=== PATIENT | male | born 1985 | race Hispanic/Latino ===

== ENCOUNTER 2018-10-29 18:01 | Observation (INO) | payer BC ==
[~2018-10-29] VITALS: Ht 175.3 cm; Wt 198.2 kg
[2018-10-29] MEDS ORDERED: SODIUM CHLORIDE 0.9% 1000ML 1,000 ML IV STA (18:27)
[2018-10-29] MEDS ORDERED: KETOROLAC TROMETHAMINE 30 MG/ML VIAL IV STA (18:27)
[2018-10-29] MEDS ORDERED: ASPIRIN 81 MG CHEW TAB PO ONE (18:30)
[2018-10-29 18:35] LABS: BASOPHILS % 0.3 % (0.0-1.0); HEMATOCRIT 46.6 % (38.2-49.6); HEMOGLOBIN 15.9 g/dL (14.0-18.0); LYMPHOCYTES # (AUTO) 0.8 (1.0-3.2); LYMPHOCYTES % 11.9 % (18.0-39.1); MEAN CORPUSCULAR HEMOGLOBIN 31.2 pg (28-32); MEAN CORPUSCULAR HGB CONC 34.1 g/dL (31-35); MEAN CORPUSCULAR VOLUME 91.4 fL (81-99); MONOCYTES # (AUTO) 0.1 (0.2-0.8); MONOCYTES % 1.5 % (4.4-11.3); NEUTROPHILS # (AUTO) 5.7 (2.1-6.9); NEUTROPHILS % 85.8 % (38.7-80.0); PLATELET COUNT 317 x10e3/uL (140-360); RED CELL DISTRIBUTION WIDTH 12.1 % (11.7-14.4)
[2018-10-29 18:45] LABS: INR 0.84; PROTHROMBIN TIME 12.3 seconds (11.9-14.5)
[2018-10-29 18:46] LABS: PARTIAL THROMBOPLASTIN TIME 26.5 seconds (23.8-35.5)
[2018-10-29 18:53] LABS: ALANINE AMINOTRANSFERASE 76 IU/L (0-55); ALBUMIN 4.7 g/dL (3.5-5.0); ALBUMIN/GLOBULIN RATIO 1.2 (0.8-2.0); ALKALINE PHOSPHATASE 57 IU/L (40-150); ANION GAP 16.1 mmol/L (8-16); BLOOD UREA NITROGEN 14 mg/dL (7-26); BUN/CREATININE RATIO 16 (6-25); CALCIUM 10.2 mg/dL (8.4-10.2); CARBON DIOXIDE 21 mmol/L (22-29); CHLORIDE 107 mmol/L (98-107); CREATINE KINASE 122 IU/L (30-200); CREATININE, SERUM 0.89 mg/dL (0.72-1.25); EST GLOMERULAR FILTRATION RATE > 60 ML/MIN (60-); GLUCOSE 142 mg/dL (74-118); LIPASE 14 U/L (8-78); POTASSIUM 4.1 mmol/L (3.5-5.1); SODIUM 140 mmol/L (136-145)
[2018-10-29 18:58] LABS: AMPHETAMINES SCREEN,URINE NEGATIVE (NEGATIVE); BENZODIAZEPINES SCREEN,URINE NEGATIVE (NEGATIVE); BILIRUBIN,URINE NEGATIVE (NEGATIVE); CLARITY,URINE CLEAR (CLEAR); COLOR,URINE YELLOW (YELLOW); KETONES,URINE NEGATIVE (NEGATIVE); LEUKOCYTE ESTERASE ,URINE NEGATIVE (NEGATIVE); NITRITE,URINE NEGATIVE (NEGATIVE); PHENCYCLIDINE SCREEN,URINE NEGATIVE (NEGATIVE); PROTEIN,URINE DIPSTICK NEGATIVE (NEGATIVE); URINE UROBILINOGEN 0.2 mg/dL (0.2 - 1)
[2018-10-29 19:04] LABS: BACTERIA,URINE RARE /HPF; EPITHELIAL CELLS,URINE RARE /LPF; RBC,URINE 0-5 /HPF (0-5); WBC,URINE (MAN) 0-5 /HPF (0-5)
[2018-10-29 19:12] LABS: THYROID STIMULATING HORMONE 1.316 uIU/mL (0.350-4.940)
--- NOTE | 2018-10-29 19:24 | Diagnostic Imaging Report ---
EXAMINATION: Chest PA and lateral views INDICATION: Pain. COMPARISON: None FINDINGS: Soft tissue attenuation. TUBES and LINES: None. LUNGS: Lungs are mildly hyperinflated. Mild bilateral perihilar peribronchial thickening. There is no evidence of pneumonia or pulmonary edema. PLEURA: No pleural effusion or pneumothorax. HEART AND MEDIASTINUM: The cardiomediastinal silhouette is unremarkable. BONES AND SOFT TISSUES: No acute osseous lesion. Soft tissues are unremarkable. UPPER ABDOMEN: No free air under the diaphragm. IMPRESSION: Mild bilateral perihilar peribronchial thickening. No focal consolidation. Signed by: Dr. Ginny Clinton M.D. on 10/29/2018 7:21 PM
[2018-10-29] MEDS ORDERED: ENOXAPARIN SODIUM INJ 100 MG/ML SYR SC NR (20:00)
[2018-10-29] MEDS ORDERED: NITROGLYCERIN 2% OINT 1 GM PKT TOP ONE (20:45)
[2018-10-29] MEDS ORDERED: SODIUM CHLORIDE FLUSH 10 ML SYR INJ PRN (20:45)
[2018-10-29] MEDS ORDERED: ONDANSETRON HCL INJ 2 MG/ML VIAL IV PRN (20:45)
[2018-10-29] MEDS ORDERED: ATORVASTATIN CA20 MG PO (20:53)
[2018-10-29] MEDS ORDERED: AUGMENTIN 875-1 EACH PO (20:53)
[2018-10-29] MEDS ORDERED: NAPROXEN250 MG PO (20:53)
--- OUTSIDE RECORDS SUMMARY | 2018-10-29 20:57 | XMS REPORT ---
Author [facility] Address Unknown Phone Unavailable Care Team Providers Care Apprentice/Lineman Name Role Phone ARSHMICHOACANO Gisella MARTINEZAME Unavailable Unavailable Problems This patient has no known problems. Allergies, Adverse Reactions, Alerts This patient has no known allergies or adverse reactions. Medications This patient has no known medications. Results Test Description Test Time Test Comments Text Results Atomic Results Result Comments CHEST SINGLE (PORTABLE) 2018-10-29 19:20:00 [place] [address] Patient Name: JINA TIM MR #: [id number] : 1985 Age/Sex: 33/M Req #: [id number] Adm Physician: Ordered by: JAMES GONZALES TUMBLING BARREL PAINTER Report #: [id number] Location: ER Room/Bed: Procedure: [id number] DX/CHEST SINGLE (PORTABLE) Exam Date: 10/29/18 Exam Time: 1855 REPORT STATUS: Signed EXAMINATION: Chest PA and lateral views IND ICATION: Pain. COMPARISON: None FINDINGS: Soft tissue attenuation. TUBES and LINES: None. LUNGS: Lungs are mildly hyperinflated. Mild bilateral perihilar peribronchial thickening. There is no evidence of pneumonia or pulmonary edema. PLEURA: No pleural effusion or pneumothorax. HEART AND MEDIASTINUM: The cardiomediastinal silhouette is unremarkable. BONES AND SOFT TISSUES: No acute osseous lesion. Soft tissues are unremarkable. UPPER ABDOMEN: No free air under the diaphragm. IMPRESSION: Mild bilateral perihilar peribronchial t hickening. No focal consolidation. Signed by: Dr. Ginny Arora M.D. on 10/29/2018 7:21 PM Dictated By: CARYN ARORA MD, MD 20 Transcribed By: ALF on 10/29/181920 COPY TO: JAMES GONZALES NP
--- OUTSIDE RECORDS SUMMARY | 2018-10-29 20:57 | XMS REPORT | Clinical Summary ---
Author Author [facility] Address Unknown Phone Unavailable Care Team Providers Care Windows Infrastructure Engineer Name Role Phone Asked, No Pcp PCP Unavailable Allergies No Known Allergies Medications Not on file Active Problems Not on file Encounters Care Team Description Date Type Specialty Spencer Emerson MD Chest pain, unspecified type (Primary Dx) 10/24/2018 Emergency Emergency Medicine - 10/25/2018 after 10/28/2017 Social History Date Tobacco Use Types Packs/Day Years Used Never Assessed Sex Assigned at Date Recorded Not on file Industry Job Start Date Occupation Not on file Not on file Not on file Travel End Travel History Travel Start No recent travel history available. Last Filed Vital Signs Time Taken Vital Sign Reading 10/25/2018 1:46 AM MARKETING OUTREACH COORDINATOR Blood Pressure 138/79 10/25/2018 1:46 AM MARKETING OUTREACH COORDINATOR Pulse 78 10/25/2018 1:46 AM MARKETING OUTREACH COORDINATOR Temperature 36.7 C (98 F) 10/25/2018 1:46 AM MARKETING OUTREACH COORDINATOR Respiratory Rate 17 10/25/2018 1:46 AM MARKETING OUTREACH COORDINATOR Oxygen Saturation 98% - Inhaled Oxygen - Concentration - Weight - 10/24/2018 8:24 PM MARKETING OUTREACH COORDINATOR Height 175.3 cm (5' 9") - Body Mass Index - Plan of Treatment Health Maintenance Due Date Last Done Comments INFLUENZA VACCINE 06/26/2018 HEPATITIS B VACCINES Aged Out No longer eligible based on patient's age to complete this topic IPV VACCINES Aged Out No longer eligible based on patient's age to complete this topic MENINGOCOCCAL VACCINE Aged Out No longer eligible based on patient's age to complete this topic Procedures Comments Procedure Name Priority Date/Time Associated Diagnosis TROPONIN STAT 10/25/2018 12:35 AM MARKETING OUTREACH COORDINATOR CT ANGIOGRAM PE CHEST STAT 10/25/2018 12:14 AM MARKETING OUTREACH COORDINATOR D-DIMER STAT 10/24/2018 10:24 PM MARKETING OUTREACH COORDINATOR XR CHEST 1 VW PORTABLE STAT 10/24/2018 9:21 PM MARKETING OUTREACH COORDINATOR ECG ED PRELIMINARY Routine 10/24/2018 INTERPRETATION 9:03 PM MARKETING OUTREACH COORDINATOR ESTIMATED GFR STAT 10/24/2018 8:33 PM MARKETING OUTREACH COORDINATOR CREATINE KINASE, TOTAL STAT 10/24/2018 (CPK) 8:33 PM MARKETING OUTREACH COORDINATOR TROPONIN STAT 10/24/2018 8:33 PM MARKETING OUTREACH COORDINATOR B NATRIURETIC PEPTIDE STAT 10/24/2018 8:33 PM MARKETING OUTREACH COORDINATOR COMPREHENSIVE METABOLIC STAT 10/24/2018 PANEL 8:33 PM MARKETING OUTREACH COORDINATOR PARTIAL THROMBOPLASTIN STAT 10/24/2018 TIME (PTT) 8:33 PM MARKETING OUTREACH COORDINATOR PROTHROMBIN TIME WITH INR STAT 10/24/2018 8:33 PM MARKETING OUTREACH COORDINATOR HC COMPLETE BLD COUNT STAT 10/24/2018 W/AUTO DIFF 8:33 PM MARKETING OUTREACH COORDINATOR ECG 12-LEAD Routine 10/24/2018 8:24 PM MARKETING OUTREACH COORDINATOR after 10/28/2017 Results * Troponin (10/25/2018 12:35 AM MARKETING OUTREACH COORDINATOR) Only the most recent of 2 results within the time period is included. Troponin <0.300 0.000 - 0.300 ng/mL [facility] Comment: [facility] 0.30 - 1.49 ng/mlMay indicate increased risk of acute coronary syndrome. >=1.5 ng/ml Consistent with acute myocardial infarction. The diagnostic value of a single normal or non-diagnostic result is questionable.Serial samples at 2-6 hour intervals are required to rule out acute myocardial injury. Specimen Plasma specimen Performing Organization Address City/State/Zipcode Phone [place] [address] [place] [address] PATHOLOGY AND GENOMIC MEDICINE [facility] [address] [address] [place] [address] [facility] * CT Angiogram Pe Chest (10/25/2018 12:14 AM MARKETING OUTREACH COORDINATOR) Narrative Performed At CT ANGIOGRAM PE CHEST [facility] CLINICAL INDICATION: PE suspectedintermediate probpositive D-dimer TECHNIQUE:CT angiographic images of the chest were obtained during intravenous administration of iodinated contrast.Computerized, reformatted images and 3-D MIP images were obtained and archived (per CT pulmonary embolism protocol). CT scans are performed using radiation dose reduction techniques (iterative reconstruction and/or automated exposure control). Technical factors are evaluated and adjusted to ensure appropriate moderation of exposure. Automated dose management technology is applied to adjust radiation exposure while achieving a diagnostic quality image. COMPARISON:None. FINDINGS: Pulmonary arteries: Diagnostic quality of study is limited due to suboptimal contrast timing and motion. In addition, there is a soft tissue attenuation. Within this limitation: . There is no evidence of acute or chronic pulmonary embolism. No evidence of right heart strain. The main pulmonary artery is dilated, measuring 3.4 cm. Aorta:No aneurysm. Lungs and large airways:Clear. Pleura:No pleural effusion, pleural thickening, or pneumothorax. Heart and pericardium:Heart size is normal. No pericardial effusion. Mediastinum and efe:No mass or hematoma. Lymph nodes:No pathological adenopathy in the efe, axilla or mediastinum. Chest wall:Unremarkable. Bones:Normal. Upper abdomen:No focal abnormality detected with limited evaluation. IMPRESSION: 1. No convincing evidence of acute pulmonary embolism although the examination is limited. Pulmonary artery is dilated, possibly indicating pulmonary arterial hypertension in the appropriate clinical setting. 2. Lungs without focal or confluent airspace consolidation. [facility]-[id number] Procedure Note Interface, Radiology Results Incoming - 10/25/2018 12:21 AM MARKETING OUTREACH COORDINATOR CT ANGIOGRAM PE CHEST CLINICAL INDICATION: PE suspected intermediate prob positive D-dimer TECHNIQUE: CT angiographic images of the chest were obtained during intravenous administration of iodinated contrast. Computerized, reformatted images and 3-D MIP images were obtained and archived (per CT pulmonary embolism protocol). CT scans are performed using radiation dose reduction techniques (iterative reconstruction and/or automated exposure control). Technical factors are evaluated and adjusted to ensure appropriate moderation of exposure. Automated dose management technology is applied to adjust radiation exposure while achieving a diagnostic quality image. COMPARISON: None. FINDINGS: Pulmonary arteries: Diagnostic quality of study is limited due to suboptimal contrast timing and motion. In addition, there is a soft tissue attenuation. Within this limitation: . There is no evidence of acute or chronic pulmonary embolism. No evidence of right heart strain. The main pulmonary artery is dilated, measuring 3.4 cm. Aorta: No aneurysm. Lungs and large airways: Clear. Pleura: No pleural effusion, pleural thickening, or pneumothorax. Heart and pericardium: Heart size is normal. No pericardial effusion. Mediastinum and efe: No mass or hematoma. Lymph nodes: No pathological adenopathy in the efe, axilla or mediastinum. Chest wall: Unremarkable. Bones: Normal. Upper abdomen: No focal abnormality detected with limited evaluation. IMPRESSION: 1. No convincing evidence of acute pulmonary embolism although the examination is limited. Pulmonary artery is dilated, possibly indicating pulmonary arterial hypertension in the appropriate clinical setting. 2. Lungs without focal or confluent airspace consolidation. [id number] Performing Organization Address [facility]/Zipcode Phone Number [facility] [address] [place] [address] * D-dimer (10/24/2018 10:24 PM MARKETING OUTREACH COORDINATOR) D-dimer 0.47 (H) 0.00 - 0.40 ug/mL FEU [facility] Comment: [facility] Units are ug/ml Fibrinogen Equivalent Unit. When combined with low clinical probability, D-dimer results of less than 0.5 ug/ml FEU have a good negativepredictive value in excluding PE or DVT. For D-dimer results greater than 0.5ug/ml FEU further testing is indicated if PE or DVT is suspectedclinically. Elevated D-dimer results have been reported in DVT, PE, and DIC cases and may indicate the presence of a clot. D-dimer results may be elevated due to old age, , inflammatory diseases, trauma, post-operative states, sepsis, and malignancies. Specimen Blood Performing Organization Address [facility]/Zipcode [place] [address] [place] [address] PATHOLOGY AND GENOMIC MEDICINE [facility] [address] [place] [id number] [facility] * XR Chest 1 Vw Portable (10/24/2018 9:21 PM MARKETING OUTREACH COORDINATOR) Narrative Performed At EXAMINATION: XR CHEST 1 VW PORTABLE [facility] CLINICAL HISTORY: chest pain COMPARISON:None. IMPRESSION: The lungs are clear. No pleural effusion or pneumothorax. The cardiomediastinal silhouette is normal. No acute osseous abnormalities. [facility]-[id number] Procedure Note Hm Interface, Radiology Results Incoming - 10/24/2018 9:33 PM MARKETING OUTREACH COORDINATOR EXAMINATION: XR CHEST 1 VW PORTABLE CLINICAL HISTORY: chest pain COMPARISON: None. IMPRESSION: The lungs are clear. No pleural effusion or pneumothorax. The cardiomediastinal silhouette is normal. No acute osseous abnormalities. [facility]-[id number] Performing Organization Address [facility]/Zipcode Phone Number [facility] [address] [place] [address] * ECG ED Preliminary Interpretation - Not an Order (10/24/2018 9:03 PM MARKETING OUTREACH COORDINATOR) Narrative Performed At Spencer Emerson MD 10/25/20181:03 AM ECG ED Preliminary Interpretation - Not an Order Performed by: Spencer Emerson MD Authorized by: Spencer Emerson MD ECG reviewed by ED Physician in the absence of a r&d engineer: yes (read at 2040) Interpretation: Interpretation: normal Rate: ECG rate:96 ECG rate assessment: normal Rhythm: Rhythm: sinus rhythm Ectopy: Ectopy: none QRS: QRS axis:Normal Conduction: Conduction: normal ST segments: ST segments:Non-specific T waves: T waves: normal * Estimated GFR (10/24/2018 8:33 PM MARKETING OUTREACH COORDINATOR) Estimated GFR >=90 mL/min/1.73 m2 [facility] Comment: [facility] CatergoryUnitsInte rpretation G1 >=90 Normal or high G2 60-89Mildly decreased [id number] Mildly to moderately decreased B7w90-86 Moderately to severely decreased G4 15-29Severely decreased G5 <15Kidney failure The eGFR was calculated using the Chronic Kidney Disease Epidemiology Collaboration (CKD-EPI) equation. Interpretation is based on recommendations of the National Kidney Foundation-Kidney Disease Outcomes Quality Initiative (NKF-KDOQI) published in 2014. Specimen Plasma specimen Performing Organization Address [facility]/Zipcode Phone Number [facility] [address] [place] [address] PATHOLOGY AND GENOMIC MEDICINE [facility] [address] [place] [address] [facility] * Partial thromboplastin time, activated (10/24/2018 8:33 PM MARKETING OUTREACH COORDINATOR) PTT 28.2 23.0 - 36.0 sec [facility] Comment: [facility] PTT therapeutic range for unfractionated heparin is 61.0-112.0 seconds which corresponds to Anti-Xa 0.3-0.7 U/ml. Specimen Blood Performing Organization Address City/[facility] Phone Number [address] [place] [address] PATHOLOGY AND GENOMIC MEDICINE [address] * Prothrombin time with INR (10/24/2018 8:33 PM MARKETING OUTREACH COORDINATOR) Prothrombin time 12.6 11.5 - 14.5 sec [facility] INR 1.0 [facility] Comment: [facility] The International Normalized Ratio (INR) is a therapeutic monitoring tool for patients who are stable on oral anticoagulant therapy. An INR of 2.0-3.0 is suggested for deep vein thrombosis/pulmonary embolism. Specimen Blood Performing Organization Address [facility] Phone Number [address] [place] [address] PATHOLOGY AND GENOMIC MEDICINE [address] * CBC with platelet and differential (10/24/2018 8:33 PM MARKETING OUTREACH COORDINATOR) WBC 6.40 4.50 - 11.00 k/uL [facility] RBC 4.60 4.40 - 6.00 m/uL [facility] HGB 14.4 14.0 - 18.0 g/dL [facility] HCT 43.9 41.0 - 51.0 % [facility] MCV 95.4 82.0 - 100.0 fL [facility] MCH 31.3 27.0 - 34.0 pg [facility] MCHC 32.8 31.0 - 37.0 g/dL [facility] RDW - SD 44.2 37.0 - 55.0 fL [facility] MPV 9.5 8.8 - 13.2 fL [facility] Platelet count 264 150 - 400 k/uL [facility] Nucleated RBC 0.00 /100 WBC [facility] Neutrophils 46.7 39.0 - 69.0 % [facility] Lymphocytes 33.9 25.0 - 45.0 % [facility] Monocytes 15.3 (H) 0.0 - 10.0 % [facility] Eosinophils 3.1 0.0 - 5.0 % [facility] Basophils 0.8 0.0 - 1.0 % [facility] Specimen Blood Performing Organization Address [facility] Phone Number [address] [place] [address] PATHOLOGY AND GENOMIC MEDICINE [address] * B natriuretic peptide (10/24/2018 8:33 PM MARKETING OUTREACH COORDINATOR) BNP 3 0 - 100 pg/mL [facility] Specimen Blood Performing Organization Address [facility] [place] [place] Phone Number [address] [place] [address] PATHOLOGY AND GENOMIC MEDICINE [address] * Creatine kinase, total (CPK) (10/24/2018 8:33 PM MARKETING OUTREACH COORDINATOR) Creatine kinase 113 39 - 308 U/L [facility] Specimen Plasma specimen Performing Organization Address [facility] [place] [place] Phone Number [address] [place] [address] PATHOLOGY AND GENOMIC MEDICINE [address] * Comprehensive metabolic panel (10/24/2018 8:33 PM MARKETING OUTREACH COORDINATOR) Sodium 141 135 - 148 mEq/L [facility] Potassium 3.8 3.5 - 5.0 mEq/L [facility] Chloride 104 98 - 112 mEq/L [facility] CO2 24 24 - 31 mEq/L [facility] Anion gap 13@ANIO 7 - 15 mEq/L [facility] BUN 15 6 - 20 mg/dL [facility] Creatinine 1.00 0.70 - 1.20 mg/dL [facility] Glucose 144 (H) 65 - 99 mg/dL [facility] Calcium 9.3 8.3 - 10.2 mg/dL [facility] Protein 7.4 6.3 - 8.3 g/dL [facility] Comment: [facility] 4.6-7.0 g/dL 1 week 4.4-7.6 g/dL 7 months-1year 5.1-7.3 g/dL 1-2 years5.6-7 .5 g/dL >3 years6.0-8 .0 g/dL 18-150 6.3-8.3 g/dL Albumin 4.3 3.5 - 5.0 g/dL [facility] A/G ratio 1.4 0.7 - 3.8 [facility] Alkaline phosphatase 60 40 - 129 U/L [facility] AST 27 10 - 50 U/L [facility] ALT 40 5 - 50 U/L [facility] Total bilirubin 0.6 0.0 - 1.2 mg/dL [facility] Specimen Plasma specimen Performing Organization Address City/State/Zipcode Phone Number [facility] [place] [id number] [place] [address] [place] [address] PATHOLOGY AND GENOMIC MEDICINE [facility] [id number] [place] [address] [place] [id number] [facility] * ECG 12 lead (10/24/2018 8:24 PM MARKETING OUTREACH COORDINATOR) Ventricular rate 96 [facility] Atrial rate 96 [facility] IA interval 130 [facility] QRSD interval 112 [facility] QT interval 350 [facility] QTC interval 442 [facility] P axis 1 30 [facility] QRS axis 1 -51 [facility] T wave axis 11 [facility] EKG impression Normal sinus rhythm-Left [facility] anterior fascicular block-Abnormal ECG-No previous ECGs available- Narrative Performed At Performing Organization Address City/[facility]/Zipcode Phone Number [facility] [address] [place] [address] after 10/28/2017 Insurance Payer Benefit Subscriber ID Type Phone Address Plan / Group BCBS BC xxxxxxxxxxxx PPO CHOICE PPO/DIANE MATT PPO Advance Directives Patient has advance care planning documents on file. For more information, cinthya e contact: Vlad Mcgraw [address] [place] [address]
[2018-10-29] MEDS: ACETAMINOPHEN 325 MG TAB PO PRN (23:50)
[2018-10-30] VITALS (7 sets, daily range): BP systolic 112–141; BP diastolic 64–89
[2018-10-30] MEDS ORDERED: NITROGLYCERIN 2% OINT 1 GM PKT TOP SCH
[2018-10-30] MEDS: NITROGLYCERIN 2% OINT 1 GM PKT TOP SCH ×2 (05:23→10:00)
[2018-10-30 05:51] LABS: CREATINE KINASE 83 IU/L (30-200)
[2018-10-30 06:57] LABS: CHOL/HDL RATIO 3.4 (3.9-4.7)
[2018-10-30] MEDS ORDERED: ASPIRIN 81 MG ENTERIC COATED PO SCH (09:00)
[2018-10-30] MEDS: ACETAMINOPHEN 325 MG TAB PO PRN (10:04)
--- NOTE | 2018-10-30 11:46 | History and Physical ---
HISTORY OF PRESENT ILLNESS: The patient is a 33-year-old male with no past medical history, who came to the hospital complaining of sharp chest pain with burning sensation in the chest. REVIEW OF SYSTEMS CARDIOVASCULAR: He had a burning sensation in chest and the chest pain was described as sharp pain with no radiation. RESPIRATORY: No shortness of breath. No coughing. GASTROINTESTINAL: No nausea. No vomiting, no diarrhea. GENITOURINARY: No frequency, no dysuria. ALLERGIES: NOT ALLERGIC TO ANYTHING. SOCIAL HISTORY: He does not smoke, does not drink. PAST MEDICAL HISTORY: Patient denies any significant past medical history. He was recently at [facility] and cardiology were going to do a stress test tomorrow. PHYSICAL EXAMINATION HEART: Shows regular rhythm. Normal S1 and S2 sounds. LUNGS: Clear bilaterally. ABDOMEN: Soft. EXTREMITIES: Show no evidence of cyanosis, edema or trauma. IMAGING DATA: EKG showed normal sinus rhythm. No evidence of any ST segment depression or elevation. He has T-wave inversion in lead III, flat T-waves in AVF. Cardiac enzymes are negative. The patient was seen by Dr. Magdaleno, cardiology, who said that he does not think he can do from the cardiology point of view. Patient is extremely obese. So he recommended to do the workup as an outpatient for atypical chest pain. He does have some heartburn also. FINAL IMPRESSION: Atypical chest pain with a borderline EKG and extreme obesity. PLAN OF TREATMENT: The patient will continue aspirin 81 mg daily. I am going to prescribe Protonix 40 mg daily because of heartburn. He is going to go for an appointment with his surface grinder tender tomorrow for workup on the chest pain. with Dr. Jony Magdaleno cardiology, who recommended to outpatient workup because of the chest pain that is atypical. Job#: [id number] SUB
[2018-10-30] MEDS ORDERED: PANTOPRAZOLE SO40 MG PO (12:30)
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
--- NOTE | 2018-10-30 13:07 | Discharge Summary ---
HISTORY OF PRESENT ILLNESS: Patient is a 33-year-old male who came here with chest pain. Dr. Magdaleno, associate account manager, saw the patient. His impression was atypical chest pain and that the workup can be done as an outpatient. The patient was already seen at [facility] by one of the associate account manager and apparently he is scheduled to see the associate account manager tomorrow for cardiac workup. PHYSICAL EXAM HEART: Shows regular rhythm. Normal S1, S2 sounds. LUNGS: Clear bilaterally. ABDOMEN: Soft. EXTREMITIES: Showed no evidence of cyanosis, edema, or trauma. On the BMP, sodium 140, potassium 4.1, chloride 107, CO2 21, BUN 14, creatinine 0.89, glucose 142. On the CBC, white blood count 6.65, hemoglobin 15.9, hematocrit 46.6, platelet count 317,000. PT 12.3, INR 0.84, PTT 26.5. AST 37, ALT 76, total bilirubin 1.2, alkaline phosphatase 57. Chest x-ray was negative. EKG was pretty much unremarkable with no evidence of any ST-segment elevation or depression, just T-wave inversions in lead III. As I said, I discussed the case with Dr. Jony Magdaleno, associate account manager, who recommended patient to be discharged home today with Protonix and aspirin and follow up with the associate account manager as an outpatient tomorrow which he is supposed to do the cardiac workup. Patient is chest pain free right now. CASA CORNELL MD Job#: [id number] KERWIN
== END 2018-10-30 12:53 | disposition home or self-care (01) ==
LOC: ER 18:01 → INTOOBSV 20:54 → ERHOLD 20:54
PROVIDERS: ADMIT Internal Medicine; ATTEND Internal Medicine
DX: R07.89 Other chest pain (principal); E66.01 Morbid (severe) obesity due to excess calories; G47.33 Obstructive sleep apnea (adult) (pediatric); E78.00 Pure hypercholesterolemia, unspecified; K21.9 Gastro-esophageal reflux disease without esophagitis; M47.895 Other spondylosis, thoracolumbar region; Z68.44 Body mass index [BMI] 60.0-69.9, adult
CPT/HCPCS: 36415 ×2; 71045; 80053; 80061; 80307; 81001; 82550 ×2; 82553 ×2; 83690; 84443; 84484 ×2; 85025; 85379; 85610; 85730; 87086; 93005 ×2; 99284; G0378 ×2; J1650; J1885; J2405; J7030

== ENCOUNTER → 2018-12-19 | Day surgery (SDC) | payer BC ==
[~2018-12-19] MED LIST: ATORVASTATIN CA20 MG PO; AUGMENTIN 875-1 EACH PO; FENTANYL CITRATE/PF 100MCG/2 ML INJ ONE; MIDAZOLAM HCL 2 MG/2 ML VIAL ONE; NAPROXEN250 MG PO; OMEPRAZOLE40 MG PO; PANTOPRAZOLE SO40 MG PO; PROPOFOL IV EMULSION 10 MG/ML 50 ML VIAL ONE
--- OUTSIDE RECORDS SUMMARY | 2018-12-19 07:15 | XMS REPORT | Clinical Summary ---
Author Author [facility] [facility] [employer] Address Unknown Phone Unavailable Care Team Providers Care Circular Sawyer Stone Name Role Phone Asked, No Pcp PCP Unavailable Allergies No Known Allergies Medications Not on file Active Problems Not on file Encounters Care Team Description Date Type Specialty Spencer Emerson MD Chest pain, unspecified type (Primary Dx) 10/24/2018 Emergency Emergency Medicine - 10/25/2018 after 12/18/2017 Social History Date Tobacco Use Types Packs/Day Years Used Never Assessed Sex Assigned at Date Recorded Not on file Industry Job Start Date Occupation Not on file Not on file Not on file Travel End Travel History Travel Start No recent travel history available. Last Filed Vital Signs Time Taken Vital Sign Reading 10/25/2018 1:46 AM OPERATIONS RESEARCH ANALYST Blood Pressure 138/79 10/25/2018 1:46 AM OPERATIONS RESEARCH ANALYST Pulse 78 10/25/2018 1:46 AM OPERATIONS RESEARCH ANALYST Temperature 36.7 C (98 F) 10/25/2018 1:46 AM OPERATIONS RESEARCH ANALYST Respiratory Rate 17 10/25/2018 1:46 AM OPERATIONS RESEARCH ANALYST Oxygen Saturation 98% - Inhaled Oxygen - Concentration - Weight - 10/24/2018 8:24 PM OPERATIONS RESEARCH ANALYST Height 175.3 cm (5' 9") - Body Mass Index - Plan of Treatment Health Maintenance Due Date Last Done Comments INFLUENZA VACCINE 06/26/2018 Procedures Comments Procedure Name Priority Date/Time Associated Diagnosis TROPONIN STAT 10/25/2018 12:[address] [address] [address] ANGIOGRAM PE CHEST STAT 10/25/2018 12:14 AM OPERATIONS RESEARCH ANALYST D-DIMER STAT 10/24/2018 10:24 PM OPERATIONS RESEARCH ANALYST XR CHEST 1 VW PORTABLE STAT 10/24/2018 9:21 PM OPERATIONS RESEARCH ANALYST ECG ED PRELIMINARY Routine 10/24/2018 INTERPRETATION 9:03 PM OPERATIONS RESEARCH ANALYST ESTIMATED GFR STAT 10/24/2018 8:33 PM OPERATIONS RESEARCH ANALYST CREATINE KINASE, TOTAL STAT 10/24/2018 (CPK) 8:33 PM OPERATIONS RESEARCH ANALYST TROPONIN STAT 10/24/2018 8:33 PM OPERATIONS RESEARCH ANALYST B NATRIURETIC PEPTIDE STAT 10/24/2018 8:33 PM OPERATIONS RESEARCH ANALYST COMPREHENSIVE METABOLIC STAT 10/24/2018 PANEL 8:33 PM OPERATIONS RESEARCH ANALYST PARTIAL THROMBOPLASTIN STAT 10/24/2018 TIME (PTT) 8:33 PM OPERATIONS RESEARCH ANALYST PROTHROMBIN TIME WITH INR STAT 10/24/2018 8:33 PM OPERATIONS RESEARCH ANALYST HC COMPLETE BLD COUNT STAT 10/24/2018 W/AUTO DIFF 8:33 PM OPERATIONS RESEARCH ANALYST ECG 12-LEAD Routine 10/24/2018 8:24 PM OPERATIONS RESEARCH ANALYST after 12/18/2017 Results * Troponin (10/25/2018 12:35 AM OPERATIONS RESEARCH ANALYST) Only the most recent of 2 results within the time period is included. Troponin <0.300 0.000 - 0.300 ng/mL [facility] Comment: [facility] 0.30 - 1.49 ng/mlMay indicate increased risk of acute coronary syndrome. >=1.5 ng/ml Consistent with acute myocardial infarction. The diagnostic value of a single normal or non-diagnostic result is questionable.Serial samples at 2-6 hour intervals are required to rule out acute myocardial injury. Specimen Plasma specimen Performing Organization Address City/State/Zipcode Phone [place] [address] [place] [address] PATHOLOGY AND GENOMIC MEDICINE [facility] [address] [place] [address] [facility] * CT Angiogram Pe Chest (10/25/2018 12:14 AM OPERATIONS RESEARCH ANALYST) Narrative Performed At CT ANGIOGRAM PE CHEST [...] Lungs without focal or confluent airspace consolidation. [id number] Procedure Note [facility], Radiology Results Incoming - 10/25/2018 12:[address]ATIONS RESEARCH ANALYST [address] ANGIOGRAM PE CHEST CLINICAL INDICATION: PE [...] Lungs without focal or confluent airspace consolidation. [facility]-[id number] Performing Organization Address [facility] Phone Number [facility] [address] [place] [address] * D-dimer (10/24/2018 10:24 PM OPERATIONS RESEARCH ANALYST) D-dimer 0.47 (H) 0.00 - 0.40 ug/mL FEU [facility] Comment: [facility] Units are ug/ml Fibrinogen Equivalent Unit. When [...] and malignancies. Specimen Blood Performing Organization Address [facility] Phone Number [facility] DEPARTMENT [address] [place] [address] PATHOLOGY AND GENOMIC MEDICINE [facility] [address] [place] [address] * XR Chest 1 Vw Portable (10/24/2018 9:21 PM OPERATIONS RESEARCH ANALYST) Narrative Performed At EXAMINATION: XR CHEST 1 VW PORTABLE [facility] CLINICAL HISTORY: chest pain COMPARISON:None. IMPRESSION: The lungs are clear. No pleural effusion or pneumothorax. The cardiomediastinal silhouette is normal. No acute osseous abnormalities. [facility]-[id number] Procedure Note [facility] Interface, Radiology Results Incoming - 10/24/2018 9:33 PM OPERATIONS RESEARCH ANALYST EXAMINATION: XR CHEST 1 VW PORTABLE CLINICAL HISTORY: chest pain COMPARISON: None. IMPRESSION: The lungs are clear. No pleural effusion or pneumothorax. The cardiomediastinal silhouette is normal. No acute osseous abnormalities. [facility]-[id number] Performing Organization Address [facility] Phone Number [facility] [address] [place] [address] * ECG ED Preliminary Interpretation - Not an Order (10/24/2018 9:03 PM OPERATIONS RESEARCH ANALYST) Narrative Performed At Spencer Emerson MD 10/25/20181:03 AM ECG ED Preliminary Interpretation - Not an Order Performed by: Spencer Emerson MD Authorized by: Spencer Emerson MD ECG reviewed by ED Physician in the absence of a senior accounts payable specialist: yes (read at 2040) Interpretation: Interpretation: normal Rate: ECG rate:96 ECG rate assessment: normal Rhythm: Rhythm: sinus rhythm Ectopy: Ectopy: none QRS: QRS axis:Normal Conduction: Conduction: normal ST segments: ST segments:Non-specific T waves: T waves: normal * Estimated GFR (10/24/2018 8:33 PM OPERATIONS RESEARCH ANALYST) Estimated GFR >=90 mL/min/1.73 m2 [facility] Comment: [facility] CatergoryUnitsInte rpretation G1 >=90 Normal or high G2 60-89Mildly decreased [id number] Mildly to moderately decreased [id number] Moderately to severely decreased G4 15-29Severely decreased G5 <15Kidney failure The eGFR was calculated using the Chronic Kidney Disease Epidemiology Collaboration (CKD-EPI) equation. Interpretation is based on recommendations of the National Kidney Foundation-Kidney Disease Outcomes Quality Initiative (NKF-KDOQI) published in 2014. Specimen Plasma specimen Performing Organization Address [facility] Phone [place] [address] [place] [address] PATHOLOGY AND GENOMIC MEDICINE [facility] [address] [address] [place] [address] [facility] * Partial thromboplastin time, activated (10/24/2018 8:33 PM OPERATIONS RESEARCH ANALYST) PTT 28.2 23.0 - 36.0 sec [facility] Comment: [facility] PTT therapeutic range for unfractionated heparin is 61.0-112.0 seconds which corresponds to Anti-Xa 0.3-0.7 U/ml. Specimen Blood Performing Organization Address [facility]/Zipcode Phone Number [address] [place] [address] PATHOLOGY AND GENOMIC MEDICINE [address] * Prothrombin time with INR (10/24/2018 8:33 PM OPERATIONS RESEARCH ANALYST) Prothrombin time 12.6 11.5 - 14.5 sec [facility] INR 1.0 [facility] Comment: [facility] The International Normalized Ratio (INR) is a therapeutic monitoring tool for patients who are stable on oral anticoagulant therapy. An INR of 2.0-3.0 is suggested for deep vein thrombosis/pulmonary embolism. Specimen Blood Performing Organization Address [facility] Phone Number [address] [place] [address] PATHOLOGY AND GENOMIC MEDICINE [address] * CBC with platelet and differential (10/24/2018 8:33 PM OPERATIONS RESEARCH ANALYST) WBC 6.40 4.50 - 11.00 k/uL [facility] RBC 4.60 4.40 - 6.00 m/uL [facility] HGB 14.4 14.0 - 18.0 g/dL [facility] HCT 43.9 41.0 - 51.0 % [facility] MCV 95.4 82.0 - 100.0 fL [facility] MCH 31.3 27.0 - 34.0 pg [facility] MCHC 32.8 31.0 - 37.0 g/dL [facility] RDW - SD 44.2 37.0 - 55.0 fL [facility] MPV 9.5 8.8 - 13.2 fL [facility] Platelet count 264 150 - 400 k/uL [facility] Nucleated RBC 0.00 /100 WBC [facility] Neutrophils 46.7 39.0 - 69.0 % [facility] Lymphocytes 33.9 25.0 - 45.0 % [facility] Monocytes 15.3 (H) 0.0 - 10.0 % [facility] Eosinophils 3.1 0.0 - 5.0 % [facility] Basophils 0.8 0.0 - 1.0 % [facility] Specimen Blood Performing Organization Address City/[facility] Phone Number [facility] DEPARTMENT [address] [place] [address] PATHOLOGY AND GENOMIC MEDICINE [address] * B natriuretic peptide (10/24/2018 8:33 PM OPERATIONS RESEARCH ANALYST) BNP 3 0 - 100 pg/mL [facility] Specimen Blood Performing Organization Address City/[facility] Phone Number [address] [place] [address] PATHOLOGY AND GENOMIC MEDICINE [address] * Creatine kinase, total (CPK) (10/24/2018 8:33 PM OPERATIONS RESEARCH ANALYST) Creatine kinase 113 39 - 308 U/L [facility] Specimen Plasma specimen Performing Organization Address [facility] Phone Number [address] [place] [address] PATHOLOGY AND GENOMIC MEDICINE [address] * Comprehensive metabolic panel (10/24/2018 8:33 PM OPERATIONS RESEARCH ANALYST) Sodium 141 135 - 148 mEq/L [facility] Potassium 3.8 3.5 - 5.0 mEq/L [facility] Chloride 104 98 - 112 mEq/L [facility] CO2 24 24 - 31 mEq/L [facility] Anion gap 13@ANIO 7 - 15 mEq/L [facility] BUN 15 6 - 20 mg/dL [facility] Creatinine 1.00 0.70 - 1.20 mg/dL [facility] Glucose 144 (H) 65 - 99 mg/dL [facility] Calcium 9.3 8.3 - 10.2 mg/dL [facility] Protein 7.4 6.3 - 8.3 g/dL [facility] Comment: [facility] [place] 4.6-7.0 g/dL 1 week 4.4-7.6 g/dL 7 months-1year 5.1-7.3 g/dL 1-2 years5.6-7 .5 g/dL >3 years6.0-8 .0 g/dL 18-150 6.3-8.3 g/dL Albumin 4.3 3.5 - 5.0 g/dL [facility] A/G ratio 1.4 0.7 - 3.8 [facility] Alkaline phosphatase 60 40 - 129 U/L [facility] AST 27 10 - 50 U/L [facility] ALT 40 5 - 50 U/L [facility] Total bilirubin 0.6 0.0 - 1.2 mg/dL [facility] Specimen Plasma specimen Performing Organization Address City/[facility] Phone Number [facility] [place] [id number] [place] [address] [place] [address] PATHOLOGY AND GENOMIC MEDICINE [facility] [id number] [place] [address] * ECG 12 lead (10/24/2018 8:24 PM OPERATIONS RESEARCH ANALYST) Ventricular rate 96 [facility] Atrial rate 96 [facility] IL interval 130 [facility] QRSD interval 112 [facility] QT interval 350 [facility] QTC interval 442 [facility] P axis 1 30 [facility] QRS axis 1 -51 [facility] T wave axis 11 [facility] EKG impression Normal sinus rhythm-Left [facility] MUSE anterior fascicular block-Abnormal ECG-No previous ECGs available- Narrative Performed At Performing Organization Address City/State/Zipcode Phone Number [facility] [employer] [address] [place] [address] after 12/18/2017 Insurance Payer Benefit Subscriber ID Type Phone Address Plan / Group BCBS BCBS xxxxxxxxxxxx PPO CHOICE PPO/DIANE MATT PPO Advance Directives Patient has advance care planning documents on file. For more information, cinthya dias contact: Vlad Gutiérrez [address] [place] [address]
[2018-12-19 09:50] VITALS: BP 134/80
== END | disposition home or self-care (01) ==
LOC: OR 07:12
PROVIDERS: ATTEND Internal Medicine Gastroenterology
DX: K29.00 Acute gastritis without bleeding (principal); K29.50 Unspecified chronic gastritis without bleeding; B96.81 Helicobacter pylori [H. pylori] as the cause of diseases classified elsewhere; K21.0 Gastro-esophageal reflux disease with esophagitis; E73.9 Lactose intolerance, unspecified; Z71.3 Dietary counseling and surveillance; G47.33 Obstructive sleep apnea (adult) (pediatric); E66.01 Morbid (severe) obesity due to excess calories; Z68.44 Body mass index [BMI] 60.0-69.9, adult; Z87.891 Personal history of nicotine dependence
CPT/HCPCS: 43239; J2250

== ENCOUNTER → 2019-01-06 | Outpatient (CLI) | payer BC ==
[~2019-01-06] MED LIST changes: -FENTANYL CITRATE/PF 100MCG/2 ML INJ ONE; -MIDAZOLAM HCL 2 MG/2 ML VIAL ONE; -PROPOFOL IV EMULSION 10 MG/ML 50 ML VIAL ONE
--- NOTE | 2019-01-06 13:11 | Diagnostic Imaging Report ---
EXAM: US ABDOMEN COMPLETE INDICATION: Heartburn, Helicobacter infection, fatty liver. COMPARISON: None TECHNIQUE: Transverse and longitudinal wagner scale and color doppler sonographic images of the upper abdomen were obtained. FINDINGS: Exam somewhat limited by overlying bowel gas and body habitus. LIVER Measures 17.8 cm in the right midclavicular line. Normal echogenicity of the liver with normal contour, no masses. SPLEEN 9.6 cm in maximum diameter. Normal echogenicity, no masses. GALLBLADDER No gallbladder wall thickening, distension, or pericholecystic fluid. Negative reported sonographic Power's sign. There is an echogenic, nonmobile focus within the gallbladder, measuring up to 0.8 cm without demonstrated Doppler flow or shadowing. BILE DUCTS No intra nor extra-hepatic biliary dilation. Common bile duct measures 0.5 cm. PANCREAS: Limited evaluation due to overlying bowel gas. RIGHT KIDNEY: 12.0 x 7.4 x 6.2 cm Echogenicity: Normal Collecting System: No hydronephrosis Stones: None Cyst/Mass: None LEFT KIDNEY: 13.2 x 5.7 x 6.1 cm Echogenicity: Normal Collecting System: No hydronephrosis Stones: None Cyst/Mass: None VESSELS: Aorta: Limited evaluation due to overlying bowel gas. Inferior Vena Cava: Visualized portions are normal Main Portal Vein: 1.2 cm, normal size with hepatopetal flow. FREE FLUID: None IMPRESSION: Hepatomegaly and hepatic steatosis. Echogenic, nonmobile focus within the gallbladder, measuring up to 0.8 cm without demonstrated Doppler flow or shadowing. This could represent a gallbladder polyp or stone. In a younger patient with no risk factor for malignancy, a follow-up ultrasound is suggested in 6 months. Signed by: Dr. Bernardo Bhagat MD on 01/06/2019 1:08 PM
== END ==
LOC: US 11:35
PROVIDERS: ATTEND Internal Medicine Gastroenterology
DX: R12 Heartburn (principal); A04.8 Other specified bacterial intestinal infections; K76.0 Fatty (change of) liver, not elsewhere classified; E66.01 Morbid (severe) obesity due to excess calories; Z71.3 Dietary counseling and surveillance
CPT/HCPCS: 76700